=== PATIENT | male | born 2000 | race Two or more races ===

== ENCOUNTER 2022-04-05 07:48 | Emergency (ER) | payer MEDICAID ==
[~2022-04-05] VITALS: Ht 190.5 cm; Wt 131.5 kg
[~2022-04-05 07:48] MED LIST: DENIES HOME MEDS
[2022-04-05 10:15] VITALS: BP 122/66
== END 2022-04-05 11:43 | disposition home or self-care (01) ==
LOC: ER 07:48
DX: S30.812A Abrasion of penis, initial encounter (principal); X58.XXXA Exposure to other specified factors, initial encounter; Y93.89 Activity, other specified; Y92.89 Other specified places as the place of occurrence of the external cause; Y99.8 Other external cause status
CPT/HCPCS: 76870

== ENCOUNTER 2024-06-04 12:54 | Emergency (ER) | payer SELFPAY ==
[~2024-06-04] VITALS: Ht 188 cm; Wt 119.9 kg
[2024-06-04 13:51] VITALS: BP 149/84; PULSE 69; RESP 17; TEMP 97.6; O2SAT 99
[2024-06-04] MEDS ORDERED: CEPH500C PO (13:56)
== END 2024-06-04 14:02 | disposition home or self-care (01) ==
LOC: ER 12:54
DX: S61.401A Unspecified open wound of right hand, initial encounter (principal); Z79.899 Other long term (current) drug therapy; X58.XXXA Exposure to other specified factors, initial encounter; Y93.89 Activity, other specified; Y92.89 Other specified places as the place of occurrence of the external cause; Y99.8 Other external cause status